=== PATIENT | male | born 1985 | race African-American/Black ===

== ENCOUNTER 2023-08-28 06:53 | Emergency (ER) | payer MEDICAID ==
[~2023-08-28] VITALS: Ht 167.6 cm; Wt 91.0 kg
[2023-08-28 07:07] VITALS: O2SAT 98
[2023-08-28] MEDS ORDERED: IBUP-2029 MT (09:00)
[2023-08-28] MEDS: IBUPROFEN 600MG TABLET PO ONE (09:19)
[2023-08-28 09:20] VITALS: BP 138/75; PULSE 78; RESP 18; TEMP 98
== END 2023-08-28 09:22 | disposition home or self-care (01) ==
LOC: ER 06:53
DX: S93.601A Unspecified sprain of right foot, initial encounter (principal); Y04.0XXA Assault by unarmed brawl or fight, initial encounter; Y93.89 Activity, other specified; Y92.89 Other specified places as the place of occurrence of the external cause; Y99.8 Other external cause status
CPT/HCPCS: 73630; 99283

== ENCOUNTER 2024-03-27 11:56 | Emergency (ER) | payer MEDICAID ==
[~2024-03-27] VITALS: Ht 177.8 cm; Wt 95.0 kg
[~2024-03-27 11:56] MED LIST: IBUP-2029 MT
[2024-03-27 12:09] VITALS: O2SAT 98
[2024-03-27 12:55] VITALS: BP 124/71; PULSE 84; RESP 18; TEMP 36.72516; O2SAT 98
== END 2024-03-27 13:14 | disposition home or self-care (01) ==
LOC: ER 11:56
DX: Z11.1 Encounter for screening for respiratory tuberculosis (principal)
CPT/HCPCS: 99281

== ENCOUNTER 2024-06-30 15:29 | Emergency (ER) | payer MEDICAID ==
[~2024-06-30] VITALS: Ht 172.7 cm; Wt 81.0 kg
[2024-06-30 15:37] VITALS: TEMP 36.8
[2024-06-30] MEDS: HYDROCODONE/ACETAMINOPHEN 10/325MG TABLET PO ONE (18:15)
[2024-06-30] MEDS: KETOROLAC 30MG/ML VIAL IM ONE (18:16)
[2024-06-30 20:39] VITALS: O2SAT 99
[2024-06-30] MEDS: MORPHINE SULFATE 4 MG/ML INJ (FOR IV/IM USE) IV ONE (20:51)
[2024-06-30] MEDS: KETAMINE HCL 50 MG/ML 10ML IV ONE (21:13)
[2024-06-30] MEDS ORDERED: OXYC-100 MT (21:28)
[2024-06-30] MEDS ORDERED: IBUP-2029 MT (21:29)
[2024-06-30 22:16] VITALS: BP 128/84; PULSE 67; RESP 12; O2SAT 99
== END 2024-06-30 22:17 | disposition home or self-care (01) ==
LOC: ER 15:29
DX: S82.492A Other fracture of shaft of left fibula, initial encounter for closed fracture (principal); S82.392A Other fracture of lower end of left tibia, initial encounter for closed fracture; X58.XXXA Exposure to other specified factors, initial encounter; Y93.89 Activity, other specified; Y92.89 Other specified places as the place of occurrence of the external cause; Y99.8 Other external cause status
CPT/HCPCS: 27810; 73590; 73600; 96372; 96374; 99285; J1885; J3490; J2270